=== PATIENT | male | born 1995 | race Caucasian/White ===

== ENCOUNTER 2018-08-23 05:36 | Outpatient (CLI) | payer BC ==
[~2018-08-23] VITALS: Ht 182.9 cm; Wt 77.1 kg
== END 2018-08-23 10:36 | disposition home or self-care (01) ==
LOC: PREOP 05:36
PROVIDERS: ATTEND Surgery
DX: Z01.818 Encounter for other preprocedural examination (principal)

== ENCOUNTER 2018-08-30 10:45 | Day surgery (SDC) | payer BC ==
[~2018-08-30] VITALS: Ht 182.9 cm; Wt 77.1 kg
[2018-08-30] MEDS ORDERED: NS IV 500 ML 500 ML ONE (10:50)
--- OUTSIDE RECORDS SUMMARY | 2018-08-30 11:07 | XMS REPORT | Continuity of Care Document ---
Author Author [facility] Address Unknown Phone Unavailable Allergies Active Description Code Type Severity Reaction Onset Reported/Identified Relationship to Patient Clinical Status Yes NO KNOWN DRUG ALLERGIES UNKNOWN NO KNOWN DRUG ALLERG Yes No Known Drug Allergies [id number] Drug Allergy Unknown N/A 08/23/2018 Medications There is no data. Problems Date Dx Coded Attending Type Code Diagnosis Diagnosed By 04/07/2013 AGNES MORALES DO V70.3 SPORTS PHYSICAL 04/07/2013 RAFI CHANDRA APRN V70.3 SPORTS PHYSICAL 10/23/2013 RAFI CHANDRA APRN 692.6 CONTACT DERMATITIS AND OTHER ECZEMA DUE TO PLANTS (EXCEPT FOOD) 08/16/2018 Marco Purcell 530.81 ESOPHAGEAL REFLUX 08/16/2018 Marco Purcell K21.0 GASTRO-ESOPHAGEAL REFLUX DISEASE WITH ESOPHAGITIS 08/16/2018 Marco Purcell 530.81 ESOPHAGEAL REFLUX 08/16/2018 Marco Purcell K21.0 GASTRO-ESOPHAGEAL REFLUX DISEASE WITH ESOPHAGITIS 08/23/2018 IRA ARAMBULA, AGUSTIN Ot Z01.818 ENCOUNTER FOR OTHER PREPROCEDURAL EXAMIN Procedures There is no data. 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 Barbara Cortes Donor ID By Employer Representitive Ethanol, Urine <10.00 mg/dL 20.00-80.00 Location [facility] Reason For Test Post Accident Temperature In Range YES Deg F 90.00-100.00 Urine Amphetamines NEGATIVE Urine Barbiturates NEGATIVE Urine Benzodiazepines NEGATIVE Urine Cocaine NEGATIVE Urine MDMA NEGATIVE Urine Methadone NEGATIVE Urine Methamphetamines NEGATIVE Urine Opiates NEGATIVE Urine Oxycodone NEGATIVE Urine PCP NEGATIVE Urine THC Metabolite NEGATIVE Drug Screen + ETOH - 01/15/17 10:04 Television Analyzer Barbara Cortes Donor ID By Employer Represent[employer] Ethanol, Urine <10.00 mg/dL 20.00-80.00 Location [place] Reason For Test Post Accident Temperature In Range YES Deg F 90.00-100.00 Urine Amphetamines NEGATIVE Urine Barbiturates NEGATIVE Urine Benzodiazepines NEGATIVE Urine Cocaine NEGATIVE Urine MDMA NEGATIVE Urine Methadone NEGATIVE Urine Methamphetamines NEGATIVE Urine Opiates NEGATIVE Urine Oxycodone NEGATIVE Urine PCP NEGATIVE Urine THC Metabolite NEGATIVE Encounters ACCT No. Visit Date/Time Discharge Status Pt. Type Provider Facility Loc./Unit Complaint [id number] 10/23/2013 14:51:00 10/23/2013 23:59:59 CLS Outpatient RAFI CHANDRA APRN [id number] 04/07/2013 18:02:00 04/07/2013 23:59:59 CLS Outpatient ANDREW PAULINOAGNES Kathy [id number] 12/04/2012 08:23:54 Document Registration [id number] 01/15/2017 09:45:00 Document Registration [id number] 08/16/2018 09:19:00 08/16/2018 23:59:00 DIS Outpatient Marco Purcell [id number] 01/15/2017 11:15:00 01/15/2017 23:59:00 DIS Outpatient Marco Purcell [id number] 01/15/2017 09:45:00 01/15/2017 23:59:00 DIS Outpatient UNLISTED, UNLISTED [id number] 12/18/2016 13:40:00 12/18/2016 23:59:00 DIS Outpatient UNLISTED, UNLISTED [id number] 08/23/2018 05:36:00 08/23/2018 10:36:00 DIS Outpatient AGUSTIN ROTH MD [facility] PREOP EGD [id number] 08/30/2018 14:30:00 PEN Preadmit AGUSTIN ROTH MD [facility] ENDO REFLUX
[2018-08-30] MEDS ORDERED: NS IV 500 ML 500 ML IV PRN (11:09)
--- NOTE | 2018-08-30 11:14 | Progress Note-Pre Operative ---
Pre-Operative Progress Note H&P Reviewed The H&P was reviewed, patient examined and no changes noted. Date Seen by Provider: Aug 30, 2018 Time Seen by Provider: 11:00 Date H&P Reviewed: Aug 30, 2018 Time H&P Reviewed: 11:00 Pre-Operative Diagnosis: AGUSTIN CHEATHAM MD Aug 30, 2018 11:14
--- NOTE | 2018-08-30 11:14 | Conscious Sedation/ASA ---
Conscious Sedation Pre-Proced Time 11:00 ASA Score 1 For ASA 3 and 4: Consider anesthesia and medical clearance. Also, for patients with a history of failed moderate sedation consider anesthesia. Airway Lungs Heart ASA score ASA 1: a normal healthy patient ASA 2: a patient with a mild systemic disease (mid diabetes, controlled hypertension, obesity ASA 3: a patient with a severe systemic disease that limits activity (angina , COPD, prior Myocardial infarction) ASA 4: a patient with an incapacitating disease that is a constant threat to life (CHF, renal failure) ASA 5: a moribund patient not expected to survive 24 hrs. (ruptured aneurysm) ASA 6: a declared brain patient whose organs are being harvested. For emergent operations, add the letter E after the classification Mallampati Classification Grade 2 Sedation Plan Analgesia, Amnesia, Plan communicated to team members, Discussed options with patient/fam, Discussed risks with patient/fam The patient is an appropriate candidate to undergo the planned procedure, sedation, and anesthesia. The patient immediately re-assessed prior to indication. AGUSTIN ROTH MD Aug 30, 2018 11:14
[2018-08-30 11:15] VITALS: BP 101/77
[2018-08-30] MEDS ORDERED: ONDANSETRON 4 MG/2 ML (SDV) Z0FRAN IV PRN (11:15)
[2018-08-30] MEDS ORDERED: PANT40TA2 PO (11:15)
[2018-08-30] MEDS ORDERED: MIDAZOLAM 2 MG/2 ML (VERSED) VIAL IVP ONE (11:15)
[2018-08-30] MEDS ORDERED: morphine INJ 10 MG/ML 1ML (SYR OR VIAL) IV PRN (11:15)
[2018-08-30] MEDS ORDERED: ACETAMINOPHEN 325 MG TABLET PO PRN (11:15)
[2018-08-30] MEDS ORDERED: HYDROcodone/APAP 5 MG/325 MG (LORTAB) TAB PO PRN (11:15)
[2018-08-30] MEDS ORDERED: fentaNYL INJECTION 100 MCG/2 ML AMP IVP ONE (11:15)
--- NOTE | 2018-08-30 11:16 | Discharge Inst-Surgical ---
D/C Lap Instructions-KIDO New, Converted, or Re-Newed RX: RX on Chart Follow Up PRN Activity as tolerated High Fiber Diet 25g or more per day Avoid Alcohol, Caffeine, Spicy Causey and Acid foods. Drink 64 fluid oz or more of fluids per day. Symptoms to Report: Fever over 101 degree F, Nausea/Vomiting If any problems/questions: Contact your physician or go to Emergency Room AGUSTIN ROTH MD Aug 30, 2018 11:16
[2018-08-30] MEDS ORDERED: LIDOCAINE JELLY 2% 6 ML SYRINGE ONE (11:36)
[2018-08-30] MEDS ORDERED: HURRICAINE EXT TUBE (BENZOCAINE) ONE (11:36)
[2018-08-30] MEDS ORDERED: fentaNYL INJECTION 100 MCG/2 ML AMP ONE ×2 (11:36→12:46)
[2018-08-30] MEDS ORDERED: MIDAZOLAM 2 MG/2 ML (VERSED) VIAL ONE ×6 (11:36→12:16)
--- NOTE | 2018-08-30 13:08 | Progress Note-Post Operative ---
Post-Operative Progess Note Surgeon (s)/Hollow Tile Partition Erector (s) Surgeon AGUSTIN ROTH MD Hollow Tile Partition Erector: none Pre-Operative Diagnosis GERD Post-Operative Diagnosis reflux esophagitis(2-3), small HH(1.5cm), moderate gastritis. Procedure & Operative Findings Date of Procedure 08/30/18 Procedure Performed/Findings EGD with bx. Anesthesia Type CS Estimated Blood Loss Estimated blood loss (mL): minimal Specimens/Packing Specimens Removed GE jxn, antrum AGUSTIN ROTH MD Aug 30, 2018 13:08
[2018-08-30 13:20] VITALS: BP 109/61
[2018-08-30] MEDS ORDERED: LIDOCAINE JELLY 2% 6 ML SYRINGE TOP ONE (13:30)
[2018-08-30] MEDS ORDERED: HURRICAINE EXT TUBE (BENZOCAINE) XX ONE (13:30)
[2018-08-30 13:50] VITALS: BP 113/88
[2018-08-30 14:15] VITALS: BP 113/88
--- NOTE | 2018-08-30 20:30 | OPERATIVE REPORT ---
DATE OF SERVICE: 08/30/2018 ATTENDING PRIMARY CARE PHYSICIAN: Dr. Purcell. PREOPERATIVE DIAGNOSIS: Persistent gastroesophageal reflux disease. POSTOPERATIVE DIAGNOSES: Reflux esophagitis between stage II and III. No formal ulcerations or strictures. A small hiatal hernia approximately 1.5 cm in size, moderate gastritis. PROCEDURE: EGD with biopsy. SURGEON: Agustin Roth MD ANESTHESIA: Conscious sedation. ESTIMATED BLOOD LOSS: Minimal. FINDINGS: Reflux esophagitis between stage II and III. No ulcerations or strictures. Small hiatal hernia approximately 1.5 cm in size, moderate severity gastritis with no formal ulcerations, polyps or any neoplasms and no distal obstructions. DISPOSITION: The patient tolerated the procedure well. INDICATIONS: The patient is a 23-year-old male with significant reflux and regurgitation, as well as associated nausea and vomiting. He reports that this has been going on for approximately two years. He does have a number of risk factors and states that he did chew tobacco in the past for approximately eight years; however, quit when his symptoms started approximately 2 years ago. He reported that his symptoms became more progressive. He also reports occasional episodes of diarrhea. He does state that he has a number of risk factors for gastroesophageal reflux disease as well as peptic ulcer disease including binge drinking on the weekends, occasional cigarette smoke as well as eating spicy, greasy and acidic foods and fast food frequently. He is currently on Zantac; however, states that this does not help. DESCRIPTION OF PROCEDURE: The patient was brought to the endoscopy suite, laid in left lateral decubitus position. After adequate IV pain and sedating medications and conscious sedation anesthesia, the mouthpiece was applied. The endoscope was then placed in the mouth visualizing the pharynx and hypopharyngeal region. Vocal cords, epiglottis and vallecula identified and appeared to be normal. The endoscope was then gently intubated at the esophageal opening and esophagus insufflated. The endoscope was then advanced to the first, second and third portion of the esophagus at the level of the GE junction. A reflux esophagitis between stage II and III were identified. There were no ulcers or strictures identified in this region. A biopsy was taken using forceps with visualization of good hemostasis. The endoscope was then easily advanced in the stomach and endoscope retroflexed, visualizing a small hiatal hernia approximately 1 to 1.5 cm in size. There was a moderate severity gastritis. There were no formal ulcerations, polyps or any neoplasms of the stomach. A biopsy was taken of the antrum with forceps to rule out H. pylori with visualization of good hemostasis. The endoscope was then advanced to the pylorus and the first and second portion of duodenum, which appeared normal and no distal obstructions. The endoscope was then slowly withdrawn while taking a second look and suctioning of residual air with no additional findings. The patient tolerated the procedure well. We will recommend the necessary lifestyle and diet accommodation including moderation or cessation of smoking, alcoholic beverages, caffeinated beverages as well as spicy, greasy and acidic foods as well as regularly scheduled exercise. We will start him on Protonix 40 mg daily. We feel that with an appropriate lifestyle and diet changes and medical management, this should resolve on its own; however, if it does not, we would proceed with further workup and evaluation including esophageal manometry study as well as a pH probe to see if there is significant reflux despite medical management and if there were any contraindications to antireflux procedure; however, he is young and we will proceed with conservative management for now. Job ID: [id number] DocumentID: [id number] Dictated Date: 08/30/2018 13:03:43 Hotel Reservationist Date: 08/30/2018 20:29:43 Dictated By: AGUSTIN ROTH MD
== END 2018-08-30 14:15 | disposition home or self-care (01) ==
LOC: ENDO 10:45
PROVIDERS: ATTEND Surgery
DX: K21.0 Gastro-esophageal reflux disease with esophagitis (principal); K44.9 Diaphragmatic hernia without obstruction or gangrene; K29.70 Gastritis, unspecified, without bleeding; Z87.891 Personal history of nicotine dependence
CPT/HCPCS: 88305